=== PATIENT | female | born 1960 | race Caucasian/White ===

== ENCOUNTER → 2020-04-25 | Outpatient (CLI) | payer BC, OTHER ==
[~2020-04-25] MED LIST: CALCIUM500 MG PO; IBUPROFEN IB200 MG PO; MULTI VITAMIN1 EACH PO; NORVASC5 MG PO; TRI-BUFFERED A325 M1 PO; TYLENOL325 MG PO
== END ==
LOC: LAB 04-24 15:08
PROVIDERS: ATTEND Student in an Organized Health Care Education/Training Program
DX: Z01.812 Encounter for preprocedural laboratory examination (principal); Z11.59 Encounter for screening for other viral diseases

== ENCOUNTER 2020-04-29 06:15 | Inpatient (IN) | payer OTHER, BC ==
[2020-04-25 14:53] LABS: HEMATOCRIT 41.1 % (37.0-47.0); HEMOGLOBIN 13.3 gm/dL (12.0-15.0); MCHC 32.4 g/dL (28.0-37.0); MCV 83.3 fL (80.0-100.0); RBC 4.93 mil/uL (4.20-5.00); RDW 13.9 % (10.5-14.5)
[2020-04-25 15:08] LABS: PROTIME 10.6 Seconds (9.3-11.4)
[2020-04-25 15:12] LABS: ALBUMIN 3.6 g/dL (3.4-5.0); CALCIUM 8.4 mg/dL (8.5-10.1); POTASSIUM 3.6 mmol/L (3.5-5.1)
[2020-04-25 15:31] LABS: URINE BILIRUBIN NEGATIVE (Negative); URINE BLOOD TRACE (Negative); URINE CLARITY CLEAR; URINE COLOR YELLOW; URINE GLUCOSE-RANDOM* NEGATIVE (Negative); URINE KETONES NEGATIVE (Negative); URINE LEUKOCYTES-REFLEX NEGATIVE (Negative); URINE NITRITE-REFLEX NEGATIVE (Negative); URINE PROTEIN (DIPSTICK) NEGATIVE (Negative); URINE UROBILINOGEN 0.2 E.U./dl (0.2-1.0)
--- NOTE | 2020-04-26 09:16 | EKG ---
[facility] [place] [address] ELECTROCARDIOGRAM REPORT Name: DANISH FRANK Room #: PRE [facility]..#: [id number] Admission: Attend Phys: George Pérez MD Discharge: Date of : 56 Report #: [id number] THIS REPORT FOR: cc: Savanah David Monalisa RNP Lundgren, Craig H. MD [facility] THIS REPORT FOR: //name// [facility] Test Date: 2020-04-25 Test Time: 15:15:40 Pat Name: DANISH FRANK Department: Room: Gender: F Supervisor [employer]: [place] : [id number] Requested By: George Pérez Order Number: [id number] MD: Jarret Cote Measurements Intervals [place] Rate: 75 P: 37 OR: 166 QRS: 37 QRSD: 89 T: 31 QT: 389 QTc: 435 Interpretive Statements Sinus rhythm Normal tracing No previous ECG available for comparison Electronically Signed On 04-26-2020 9:16:45 CDT by Jarret Cote [email or web address] <ELECTRONICALLY SIGNED> By: Jarret Cote MD, [facility] 04/26/20 0916 1515 151 Jarret Cote MD, FAC /EPI
[~2020-04-29] VITALS: Ht 160 cm; Wt 76.2 kg
--- NOTE | ~2020-04-29 | O ---
[facility] [place] [address] OPERATIVE REPORT Name: DANISH FRANK Room #: 448[facility] M..#: [id number] Admission: 04/29/20 Attend Phys: George Pérez MD Discharge: Date of : 56 Report #: [id number] THIS REPORT FOR: cc: Savanah David,Savanah Pérez,George Castillo MD ~ CC: Savanah Pérez DATE OF SERVICE: 04/29/2020 PREOPERATIVE DIAGNOSIS: Left knee osteoarthritis. POSTOPERATIVE DIAGNOSIS: Left knee osteoarthritis. PROCEDURE: Left total knee arthroplasty using Navio robotic assistance. SURGEON: George Pérez MD. BRANCH CHIEF: Kay Silva PA-C. INDICATIONS FOR BRANCH CHIEF: Throughout the case, extensive retraction and manipulation of the knee was required. This was afforded to me by my assistant director of residence life. ANESTHESIA: LMA with an adductor canal block. IMPLANTS: [employer]hew size 5 Journey II BCS Oxinium femur, size 3 tibia, size 11 constrained polyethylene and size 32 patella. TOURNIQUET TIME: 51 minutes. ESTIMATED BLOOD LOSS: 25 mL. COMPLICATIONS: None. SPECIMENS: None. CONDITION UPON LEAVING THE OPERATING ROOM: Stable. INDICATIONS FOR PROCEDURE: The patient is a 59-year-old female with severe left knee osteoarthritis. She had failed conservative measures for this and after discussion with her, she elected for left total knee arthroplasty. DESCRIPTION OF PROCEDURE: Risks, benefits, alternatives, complications were discussed in detail with the patient including but not limited to risk of anesthesia, risk of damage to nerves, arteries, blood vessels, risk for [facility] [address] [place] [address] OPERATIVE REPORT Name: DANISH FRANK Room #: 448-P [facility] M..#: [id number] Admission: 04/29/20 Attend Phys: George Pérez MD Discharge: Date of : 56 Report #: [id number] infection, bleeding, risk for continued knee pain, need for reoperation. Informed consent was obtained from the patient. Left knee was appropriately marked in the preoperative holding area. IV Ancef was given for preoperative antibiotics. She was brought to the operating room and placed in supine position on operating room table. LMA anesthesia was induced without complication. Tourniquet was placed on the left thigh. Left lower extremity was prepped and draped in normal sterile fashion. Timeout was performed properly identifying the patient and procedure as well as the instrumentation and implants. All in the operating room were in agreement. Left lower extremity was exsanguinated, tourniquet was inflated. Tourniquet time was 51 minutes. Standard midline approach to the knee was made with 10 blade through the skin. Dissection was taken down sharply to the fascia and deep flaps were developed medially and laterally. Fresh 10 blade was used to make a medial parapatellar arthrotomy and the knee was inspected. There was severe medial compartment with moderate lateral and patellofemoral compartment osteoarthritis. ACL and PCL were removed sharply. Reference pins were placed in femur and the tibia. The knee was then digitally mapped using the Carmolex, robotic system. Intraoperative plan was made and we sized the size 5 femur and a size 3 tibia with a 10 spacer. After acceptance of the intraoperative plan, the distal femoral cut was made with a Navio bur. Distal femoral cutting block was pinned in place and distal femoral cuts were made. Attention was then turned to the tibia. Remainder of the menisci removed with Bovie cautery. Tibial resection guide was pinned in place using the Navio for placement and tibial resection was made. After this, tibia was sized, found to be a size 3. A size 3 tibial trial was placed, pinned and punched. Size 5 femoral trial was placed and box cut was made. This was then trialed with a size 10 and then a size 11 polyethylene and size 11 polyethylene, demonstrated good balance in flexion and extension; however, in deep flexion, she was somewhat loose laterally and it was felt we could make up for this with the final implant; 9 mm was resected from the posterior surface of the patella and a size 32 patellar trial button was placed. Knee was taken through range of motion, found to be stable, found to have good patellar tracking. Trial components were removed. Bony ends were thoroughly irrigated with normal saline. A final size 3 tibia, size 5 Journey II BCS Oxinium femur and a size 32 patella were cemented in place using standard cementation techniques. While the cement cured, a periarticular injection consisting of morphine, ropivacaine, epinephrine and Toradol was placed around the knee joint capsule. After the cement cured, tourniquet was deflated. Hemostasis was obtained with Bovie cautery. A final size 11 constrained polyethylene was placed. A gram of vancomycin was placed deep in the joint. The fascia was closed with 0 Vicryl, skin was closed with 2-0 Vicryl, Monocryl. Dermabond and a JOAN dressing was applied. The patient tolerated this procedure well and went to recovery room under care of anesthesia postoperatively. By: [id number] George Pérez MD /nt
[2020-04-29 07:18] VITALS: BP 138/86
[2020-04-29 14:39] VITALS: BP 120/72
--- NOTE | 2020-04-29 15:42 | NUR ---
PATIENT ADMITTED FROM OR WITH LEFT TOTAL KNEE, JOAN DRESSING KNEE HIGH HUY HOSE, POLAR PACK IN PLACE. PATIENT VERY SLEEPY, UNABLE TO WAKE THE PATIENT FOR ADMISSION OR PHYSICAL THERAPY. PATIENT FINALLY WOKE UP, USED THE BEDPAN, URINATED W/O DIFFUCULTY. PATIENT HAS LEFT AC IV IN PLACE IV FLUIDS AT 100CC/HR. VSS. PATIENT DENIES PAIN, C/O NAUSEA, ZOFRAN 4MG IV GIVEN. PHYSICAL THERAPY WILL WORK WITH THE PATIENT TOMORROW. MOTHER AT BEDSIDE. WILL REPORT TO TED/KELVIN.
[2020-04-29 21:13] VITALS: BP 99/44
[2020-04-29 21:15] VITALS: BP 125/75
--- NOTE | 2020-04-30 03:56 | NUR ---
ASSUMED PT CARE AT 1900. PT IS A&OX4, AT TIMES FUSSY, THEN WILL BE FRIENDLY SHORTLY AFTER. PAIN BEING MANAGED WITH PO PAIN MEDS. FLUIDS INFUSING PER ORDER. PT UP TO COMMNOEMI KERR, TOLERATED WELL. DOES NOT LIKE TO BE AWAKENED WHILE SLEEPING, KEPT ASKIGN ME TO COME BACK LATER. NO COMPLAINTS AT THIS TIME, RESTING IN BED WITH EYES CLOED. WILL CONTINUE TO MONITOR.
[2020-04-30 05:56] VITALS: BP 128/70
[2020-04-30 06:49] LABS: HEMOGLOBIN 10.7 gm/dL (12.0-15.0); MCH 27.3 pg (26.0-34.0); MCHC 32.4 g/dL (28.0-37.0); MCV 84.3 fL (80.0-100.0); RBC 3.91 mil/uL (4.20-5.00); RDW 14.1 % (10.5-14.5)
[2020-04-30 09:35] VITALS: BP 102/54
--- NOTE | 2020-04-30 10:59 | NUR ---
assessment: CM REVIEWED CHART AND SPOKE WITH PATIENT. PT REPORTS THAT SHE LIVES IN A HOUSE AND HER DAUGHTER STAYS THERE WITH HER. PT REPORTS SHE CAN GO THROUGH THE BACK DOOR TO ENTER HER HOUSE AND WILL ONLY HAVE ONE STEP TO ENTER AND NO STEPS TO USE ONCE INSIDE. PT REPORTS SHE HAS A WALKER AT HOME SHE CAN USE. PT REPORTS SHE HAS HAD [facility] IN THE PAST AND FEELS SHE MAY NEED THEM AT DISCHARGE. PT WANTS TO USE [facility] IF HH IS NEEDED, CM REQUESTED CYTOLOGY SUPERVISOR TO SEND REFERRAL. PT/OT TO SEE PATIENT. CM WILL CONTINUE TO FOLLOW TO ASSIST NEEDED.
--- NOTE | 2020-04-30 14:09 | NUR ---
FAXED REFERRAL TO [facility] SPOKE WITH THELMA IN INTAKE SHE RECEIVED REFERRAL AND THEY CAN ACCEPT AT [place].
[2020-04-30 17:31] VITALS: BP 100/62
--- NOTE | 2020-04-30 18:45 | NUR ---
PT ASSESSED AT START OF SHIFT. C/O PAIN THIS AM AND MEDS GIVEN W/ GOOD RELIEF BUT DID LOWER BP AND MAKE PT SLEEPY. AMBULATED W/ THERAPY TWICE AND TRANSFERRED TO [facility] W/ MIN ASSIST. LATE AFTERNOON PT REQUESTED PAIN PILL. AN HOUR LATER C/O INTENSE LT CALF PAIN AND LEG EXAMINED BY ANOTHER RN AND LEG WAS NOTED TO BE WARM AND VERY SWOLLEN AND PAINFUL. DR. DARLING ISRAEL AND PA RETURNED CALL ORDERING STAT VENOUS DOPPLER TO CHECK FOR DVT. REPORT TO BE CALLED TO PA WHEN AVAILABLE. PT RESTING MORE COMFORTABLY AFTER IV MORPHINE GIVEN.
--- NOTE | 2020-04-30 20:28 | NUR ---
PT'S MOM WAS STILL HERE AFTER 1900,SHE WAS INFORMED THAT THE VISITING HOUR IS OVER,SHE STATED THAT SHE WANTS TO WAIT FOR THE RESULT OF PT'S US. THIS NURSE TOLD HER THAT SHE WILL BE INFORMED SOON THE RESULT IS AVAILABLE. PER REPORT,PT HAS SWELLING AND WARMTH ON HER L CALF,US DONE,REPORT CALLED TO [facility] AT 2004 AND PT'S MOM MS MAGALLON WAS NOTIFIED THAT THE RESULT WAS NEGATIVE FOR DVT.PT WAS GIVEN PAIN MED AND SHE IS RESTING ON HER BED AT THTIS TIME.CALL LIGHT WITHIN REACH.
[2020-04-30 21:00] VITALS: BP 152/75
[2020-05-01 06:30] LABS: HEMATOCRIT 28.4 % (37.0-47.0); HEMOGLOBIN 9.3 gm/dL (12.0-15.0); MCH 27.5 pg (26.0-34.0); MCHC 32.8 g/dL (28.0-37.0); MCV 83.6 fL (80.0-100.0); RBC 3.4 mil/uL (4.20-5.00); RDW 13.9 % (10.5-14.5); WBC 5.8 thou/uL (4.0-11.0)
[2020-05-01 07:30] VITALS: BP 136/76
--- NOTE | 2020-05-01 14:19 | NUR ---
ON-GOING ASSESSMENT: CM REVIEWED CHART. PT CONTINUES TO STRUGGLE WITH PAIN AND PHYSICAL THERAPY AND PLANS FOR POSSIBLE DISCHARE TOMORROW. PER PATIENTS CHOICE [facility] IS FOLLOWING. IF PATIENT CONTINUES TO STRUGGLE AND THEY RECOMMEND SNF PLACEMENT WE WOULD HAVE TO GET INSURANCE AUTH . CM WILL SEE HOW PATIENT PROGRESSES WITH THERAPY TOMORROW.
[2020-05-01 16:35] VITALS: BP 147/76
[2020-05-01 19:13] VITALS: BP 163/79
--- NOTE | 2020-05-01 19:55 | NUR ---
PT CARE ASSUMED AT 0700. A&Ox4. PT CONTINUES TO BE IN MORE PAIN THEN SHE SHOULD BE POST OP DAY 2. SHE IS ABLE TO LENGHTEN OUT THE TIME THAT SHE IS NEEDING PAIN MEDICATION THOUGH. WITH DARK ROOM, WARM BLANKET, AND MEDITATION MUSIC SHE IS ABLE TO RELAX. PO MEDS WERE ALL THAT SHE REQUIRED. JOAN DRESSING/POLARPACK/SCD'S/HUY HOSES IN PLACE. FALL PROTOCOLL IN PLACE. CALL LIGHT IN PLACE.
[2020-05-02 05:12] VITALS: BP 116/72
--- NOTE | 2020-05-02 05:30 | NUR ---
RECEIVED CARE OF THIS PATIENT AT 1900. PATIENT ALERT AND ORIENTED X4. C/O PAIN, MED GIVEN WITH GOOD RESULTS. DRESSING ON L KNEE D/I. HAS HUY'S, SCD'S POLAR ICE WELL A JOAN DRESSING. PATIENT SLEPT MOST OF THE NIGHT.
[2020-05-02 06:05] LABS: HEMATOCRIT 26.6 % (37.0-47.0); HEMOGLOBIN 8.8 gm/dL (12.0-15.0); MCH 27.6 pg (26.0-34.0); MCHC 32.9 g/dL (28.0-37.0); MCV 83.7 fL (80.0-100.0); RBC 3.18 mil/uL (4.20-5.00); RDW 13.6 % (10.5-14.5); WBC 6.6 thou/uL (4.0-11.0)
[2020-05-02 07:50] VITALS: BP 133/76
--- NOTE | 2020-05-02 09:48 | NUR ---
Assumed care of pt at 0700. Dressing on lt knee c/d/i. Swelling noted on lt knee. Pt still struggling with pain control. Prn and scheduled pain meds administered. PT/OT seeing patient. Possible SNF placement per PT recommendation. Fall precautions in place. Will continue to monitor.
--- NOTE | 2020-05-02 13:22 | NUR ---
ON-GOING ASSESSMENT: CM REVIEWED CHART AND SPOKE WITH PATIENT. PT/OT RECOMMENDATION FOR SNF AT DISCHARGE AND DUE TO HER PAIN. CM DISCUSSED THIS WITH PATIENT AND SHE STATES SHE IS SCARED TO GO TO A SNF DUE TO THE PANDEMIC. CM STATED IF PATIENT WAS AGREEABLE FOR SNF CM COULD CONTACT ANY FACILITY SHE WAS INTERESTED IN TO SEE IF THEY HAD ANY CASES THEY WERE AWARE ABOUT. EAMON ALSO GOT A MESSAGE FROM UR RN STATING PATIENT PATIENTS INSURANCE IS LISTED INCORRECTLY WAS SHOWING PREFERRED CARE BLUE BUT PATIENT ACTUALLY HAS MEDICARE PRIMARY. CM PROVIDED PATIENT WITH A SNF LIST FOR HER TO REVIEW AND SHE STATES SHE WANTS TO DISCUSS THIS WITH FAMILY BEFORE SHE MAKES A DECISION. CM WILL CONTINUE TO FOLLOW TO ASSIST NEEDED.
[2020-05-02 16:00] VITALS: BP 119/69
[2020-05-02 19:41] VITALS: BP 126/60
--- NOTE | 2020-05-03 04:00 | NUR ---
PT WAS IN ALOT OF PAIN AT THE START OF SHIFT, CRYING LOUDLY. PRN MORPHINE GIVEN AND PAIN GOT A LITTLE BETTER. PT UNABLE TO GO TO THE BATHROOM AT THAT TIME AND USED A BEDPAN. BY THE TIME I WAS GIVING PATIENT HER REGULAR HS MEDS, SHE WAS FEELING ALOT BETTER AND WAS ABLE TO WALK TO THE BATHROOM. BP STABLE. AFEBRILE, NO COUGH OR SOA. XL LONG TEDS WERE PROVIDED, BUT PATIENT REFUSED THEM AGAIN, BECAUSE SHE SAID THEY WERE TOO TIGHT SOON I TRIED TO GET THEM ONTO RLE. PT IS USUALLY HESITANT TO TAKE PAIN MEDS AND WILL ASK IF THE MEDS HAVE ANY SIDE EFFECTS. I CONSTANTLY REINFORCED EDUCATION BY BEDSIDE.OBSERVED EATING SNACKS. VOIDING OKAY. L KNEE JOAN DRSG INTACT. THE KNEE IS SWOLLEN AND TENDER. GOOD CIRCULATION,SENSATION AND MOVEMENT NOTED TO LLE. SHE CALLS WITH NEEDS. WILL CONTINUE WITH POC.
[2020-05-03 05:08] VITALS: BP 119/72
[2020-05-03 07:31] VITALS: BP 113/65
--- NOTE | 2020-05-03 10:44 | NUR ---
ON-GOING ASSESSMENT: CM REVIEWED CHART AND MET WITH PATIENT AROUND 0810 THIS AM TO DISCUSS IF SHE IS AGREEABLE WITH SNF OR WANTS TO RETURN HOME WITH HH. PT STATING SHE CONTINUES TO CONTEMPLATE HER DECISION. PT THEN REQUESTED A REFERRAL BE SENT TO [facility] CLOS[facility] AND SHE MIGHT BE AGREEABLE. CM FAXED REFERRAL, CM RECEIVED A CALL BACK FROM [facility] STATING THEY DO NOT HAVE A BED TODAY. CM NOTIFIED PATIENT. PT IS NOW STATING SHE IS WANTING TO POSSIBLY GO HOME AND NOT TO SNF ANF WANTS TO DISCUSS WITH HER FAMILY TO SEE WHO CAN HELP HER AT HOME. CM STATED RECOMMENDATION IF FOR SNF BUT HER CHOICE. CM NOTIFYING PATIENT THAT WE WILL NEED TO GET REFERRALS OUT [facility] IF SHE IS WANTING TO GO TO SNF. PT STATES SHE WILL TALK WITH FAMILY AND GET BACK TO CM. CM WILL CONTINUE TO FOLLOW. CM SPOKE WITH PA AND WILL CONTINUE TO FOLLOW.
--- NOTE | 2020-05-03 12:11 | NUR ---
Assumed care of pt at 0700. Pt a&ox4. Prn pain meds given and pain relief obtained. JOAN dressing c/d/i. Up with SBA w/walker and gait-belt. Pt will discharge to SNF today. Call light within reach. Will continue to monitor.
[2020-05-03] MEDS ORDERED: NEURONTIN 300M300 M2 PO (12:12)
[2020-05-03] MEDS ORDERED: ASPIR 8181 MG PO (12:12)
--- NOTE | 2020-05-03 13:46 | NUR ---
ON-GOING ASSESSMENT: CM MET AGAIN WITH PATIENT AT THE BEDSIDE. PT REPORTS SHE IS AGREEABLE TO GO TO SNF AND PREFERS TO NOW GO TO [facility]. CM SPOKE WITH ALAN ANN AT [facility] WHO STATES THEY CAN ACCEPT PATIENT TODAY FOR SNF. MARISSA VERIFIED AND PATIENT DOES NOT NEED ANOTHER COVID TEST PRIOR TO COMING TO FACILITY AND THE NEGATIVE TEST FROM 04/25 THE ONLY ONE NEEDED. CM FAXED DISCHARGE PAPERWORK TO [facility] AND CONFIRMED THEY RECEIVED IT. CHART COPY WAS ORDERED. TRANSPORTATION IS ARRANGED FOR 1600. CM NOTIFIED PT AND HER BEDSIDE RN. PT REPORTS NO FURTHER NEEDS FROM CM AT THIS TIME. CM DID NOTIFY PATIENT THAT DUE TO PANDEMIC PT IS UNABLE TO HAVE VISITORS AT SNF.
== END 2020-05-03 16:19 | DRG 470 ==
LOC: OR 06:15 → TBA 06:17 → OR 11:05 → 4S 11:39 → OR 11:50 → 4S 04-30 16:35
PROVIDERS: ADMIT Orthopaedic Surgery; ATTEND Orthopaedic Surgery
PROC: 0SRD069 Replacement of Left Knee Joint with Oxidized Zirconium on Polyethylene Synthetic Substitute, Cemented, Open Approach (ICD-10-PCS; principal; 2020-04-29)
DX: M17.12 Unilateral primary osteoarthritis, left knee (principal); Z88.6 Allergy status to analgesic agent; Z79.899 Other long term (current) drug therapy
CPT/HCPCS: 10102; 50010; 50101; 50415; 50954; 51130; 51225; 51320; 52001; 52282; 53000; 53078; 53365; 56527; 56528; 57095; 57103; 57110; 57127; 57180; 64043; 65060; 70005

== ENCOUNTER → 2020-05-31 | Outpatient (CLI) | payer OTHER, BC ==
[~2020-05-31] MED LIST changes: +ASA81BEC PO; +ASPIR 8181 MG PO; +HYDROCODON-ACE1 EAC7 PO; +NEURONTIN 300M300 M2 PO; +OXYCODONE-ACET1 EACH PO; +PERCOCET 5-3251 EACH PO
== END ==
LOC: LAB 12:03
PROVIDERS: ATTEND Orthopaedic Surgery
DX: Z01.812 Encounter for preprocedural laboratory examination (principal); Z20.828 Contact with and (suspected) exposure to other viral communicable diseases

== ENCOUNTER → 2020-06-05 | Day surgery (SDC) | payer OTHER, BC ==
[~2020-06-05] VITALS: Ht 160 cm; Wt 77.1 kg
--- NOTE | ~2020-06-05 | O ---
[facility] [place] [address] OPERATIVE REPORT Name: DANISH FRANK Room #: REG [facility].#: [id number] Admission: 06/05/20 Attend Phys: George Pérez MD Discharge: Date of : 56 Report #: [id number] THIS REPORT FOR: cc: Savanah David,Savanah Pérez,George Castillo MD ~ CC: Savanah Pérez DATE OF SERVICE: 06/05/2020 PREPROCEDURE DIAGNOSIS: Left knee arthrofibrosis, status post total knee arthroplasty. POSTPROCEDURE DIAGNOSIS: Left knee arthrofibrosis, status post total knee arthroplasty. PROCEDURE: Left knee manipulation under anesthesia. SURGEON: George Pérez MD ANESTHESIA: LMA. ESTIMATED BLOOD LOSS: Zero. COMPLICATIONS: None. CONDITION UPON LEAVING THE OPERATING ROOM: Stable. INDICATIONS FOR PROCEDURE: The patient is a 59-year-old female who is about a month out from a left total knee arthroplasty. She has plateaued with physical therapy and has really had no gains in her motion after aggressive PT. After discussion with her and her family, they elected for left knee manipulation under anesthesia. DESCRIPTION OF PROCEDURE: Risks, benefits, alternatives and complications were discussed in detail with the patient including but not limited to risks of anesthesia, risk of intraoperative fracture, failure of procedure and need for further procedures. Informed consent was obtained from the patient and the left knee was appropriately marked in the preoperative holding area. She was brought to the operating room and placed in supine position on operating room table. LMA anesthesia was induced without complication. Timeout was performed properly identifying the patient and procedure as well and all in the operating room were in agreement. Passive range of motion of the knee was tested and she had 3 degrees of extension with only 50 degrees of flexion. The knee was then gently manipulated in flexion with small palpable breakage of scar tissue. Her final [facility] [address] [place] [address] OPERATIVE REPORT Name: DANISH FRANK Room #: REG [facility]#: [id number] Admission: 06/05/20 Attend Phys: George Pérez MD Discharge: Date of : 56 Report #: [id number] range of motion was from 3 degrees of extension to 100 degrees of flexion. Fluoroscopic imaging was brought in to verify that no intraoperative fracture had occurred and this was confirmed to be the case. She was then awoken from anesthesia and went to the recovery room ____. By: [id number] George Pérez MD /nt
[2020-06-05 12:04] VITALS: BP 137/89
[2020-06-05 14:04] VITALS: BP 137/89
== END | disposition home or self-care (01) ==
LOC: OR 00:01
PROVIDERS: ATTEND Orthopaedic Surgery
DX: M24.662 Ankylosis, left knee (principal); I10 Essential (primary) hypertension; Z96.652 Presence of left artificial knee joint; Z98.890 Other specified postprocedural states; Z79.899 Other long term (current) drug therapy; Z87.891 Personal history of nicotine dependence; Z98.51 Tubal ligation status; Z96.641 Presence of right artificial hip joint; Z86.73 Personal history of transient ischemic attack (TIA), and cerebral infarction without residual deficits; Z88.8 Allergy status to other drugs, medicaments and biological substances
CPT/HCPCS: 50010; 50101; 62110; 62900; 70005